=== PATIENT | male | born 1990 | race African-American/Black ===

== ENCOUNTER 2018-03-19 18:57 | Emergency (ER) | payer SELFPAY ==
[~2018-03-19] VITALS: Ht 182.9 cm; Wt 114.4 kg
[~2018-03-19 18:57] MED LIST: BACTRIM DS1 TAB PO; CEPHALEXIN500 MG PO; CIPRO500 MG PO; FLEXERIL OR; KEFLEX500 MG OR; LORTAB 10 PO; LORTAB 7.5 PO; NO MEDS; ZITHROMAX250 MG OR
[2018-03-19 19:55] LABS: HEMATOCRIT 40.4 % (39.0-50.0); IMMATURE GRANULOCYTES 0.5 % (0.0-5.0); MEAN CELL VOLUME 79.8 fL CALC (80.0-100.0); MEAN CORPUSCULAR HGB 27.7 pG CALC (26.0-32.0); MEAN CORPUSCULAR HGB CONC 34.7 g/L CALC (32.0-36.0); NEUT# 12.33 thou/uL (1.82-7.42); RED BLOOD COUNT 5.06 mill/uL (4.70-6.10); RED CELL DISTRI WIDTH 13.8 % (11.5-15.5)
[2018-03-19 20:11] LABS: ANION GAP 14 (6-22 (CALC)); BUN 11 mg/dL (9-20); BUN/CREATININE RATIO 12 (12-20 (CALC)); CARBON DIOXIDE 26 mmol/l (22-30); CHLORIDE 101 mmol/l (95-108); CREATININE 0.9 mg/dL (0.7-1.3); GFR > 60 ML/MIN (>=60 (CALC)); GFR FOR AFR.AMER. > 60 ML/MIN (>=60 (CALC)); POTASSIUM 3.5 mmol/l (3.5-5.1); SODIUM 137 mmol/l (137-146)
[2018-03-19 20:15] LABS: ACT PARTIAL THROMBO TIME 32.4 SECONDS (20.0-32.5); PROTHROMBIN TIME 10.7 SECONDS (9.0-12.5)
[2018-03-19] MEDS ORDERED: DOXYCYCL HYC100 MG PO (20:30)
[2018-03-19 21:01] VITALS: BP 114/49
== END 2018-03-19 21:00 | disposition home or self-care (01) | DRG 603 ==
LOC: ED 18:57
PROVIDERS: Family Medicine
DX: L03.115 Cellulitis of right lower limb (principal); S80.861A Insect bite (nonvenomous), right lower leg, initial encounter; F17.210 Nicotine dependence, cigarettes, uncomplicated; W57.XXXA Bitten or stung by nonvenomous insect and other nonvenomous arthropods, initial encounter

== ENCOUNTER 2019-10-15 | Emergency (ER) | payer SELFPAY ==
[~2019-10-15] MED LIST changes: +DOXYCYCL HYC100 MG PO
[2019-10-15] MEDS ORDERED: MUPIROCIN2 % EX ×2 (19:48)
[2019-10-15] MEDS ORDERED: NO HOME MEDS (20:06)
== END 2019-10-15 20:13 | disposition home or self-care (01) | DRG 605 ==
DX: S81.811A Laceration without foreign body, right lower leg, initial encounter (principal); F17.210 Nicotine dependence, cigarettes, uncomplicated; W13.3XXA Fall through floor, initial encounter; Y92.008 Other place in unspecified non-institutional (private) residence as the place of occurrence of the external cause

== ENCOUNTER 2020-03-15 14:17 | Emergency (ER) | payer SELFPAY ==
[~2020-03-15] VITALS: Ht 182.9 cm; Wt 116.0 kg
[~2020-03-15 14:17] MED LIST changes: +MUPIROCIN2 % EX; +NO HOME MEDS
[2020-03-15] MEDS ORDERED: BACTRIM DS1 TAB PO (14:32)
[2020-03-15 14:37] VITALS: BP 155/85
== END 2020-03-15 14:52 | disposition home or self-care (01) | DRG 603 ==
LOC: ED 14:17
DX: L02.212 Cutaneous abscess of back [any part, except buttock and flank] (principal); F17.210 Nicotine dependence, cigarettes, uncomplicated

== ENCOUNTER 2021-04-16 11:33 | Emergency (ER) | payer SELFPAY ==
[2021-04-16] MEDS ORDERED: CORTISPORIN OTI10 M2 AD (13:01)
[2021-04-16] MEDS ORDERED: AMOXICILLIN875 MG PO (13:01)
[2021-04-16 13:05] VITALS: BP 140/88
== END 2021-04-16 13:05 | disposition home or self-care (01) | DRG 153 ==
LOC: ED 11:33
DX: H66.91 Otitis media, unspecified, right ear (principal); H60.91 Unspecified otitis externa, right ear; F17.210 Nicotine dependence, cigarettes, uncomplicated

== ENCOUNTER 2021-07-27 10:57 | Emergency (ER) | payer SELFPAY ==
[~2021-07-27] VITALS: Ht 182.9 cm; Wt 113.6 kg
[~2021-07-27 10:57] MED LIST changes: +AMOXICILLIN875 MG PO; +CORTISPORIN OTI10 M2 AD
[2021-07-27 12:40] LABS: HEMOGLOBIN 15.9 g/dl (14.0-18.0); MEAN CELL VOLUME 82.3 fL CALC (80.0-100.0); MEAN CORPUSCULAR HGB 27.8 pG CALC (26.0-32.0); MEAN CORPUSCULAR HGB CONC 33.8 g/dL CAL (32.0-36.0); NEUT# 4.49 thou/uL (1.82-7.42); RED BLOOD COUNT 5.72 mill/uL (4.70-6.10)
[2021-07-27 12:45] LABS: HEMATOCRIT 47.1 % (39.0-50.0)
[2021-07-27 12:47] LABS: ALBUMIN 4.7 g/dL (3.2-5.0); ALKALINE PHOSPHATASE 59 u/l (38-126); AMYLASE 56 u/l (30-110); ANION GAP 14 (6-22 (CALC)); BILIRUBIN, TOTAL 1.6 mg/dL (0.0-1.4); BUN 12 mg/dL (9-20); BUN/CREATININE RATIO 11 (12-20 (CALC)); CHLORIDE 96 mmol/l (95-108); CREATININE 1.1 mg/dL (0.7-1.3); ETHYL ALCOHOL 0 mg/dl (0-30); GFR > 60 ML/MIN (>=60 (CALC)); GFR FOR AFR.AMER. > 60 ML/MIN (>=60 (CALC)); LIPASE 30 u/l (23-300); POTASSIUM 4.2 mmol/l (3.5-5.1); SGOT/AST 26 u/l (17-59); SODIUM 138 mmol/l (137-146); TOTAL PROTEIN 8.2 g/dL (6.3-8.2)
[2021-07-27 12:49] LABS: CARBON DIOXIDE 32 mmol/l (22-30)
[2021-07-27 14:14] LABS: URINE BLOOD DIPSTICK NEGATIVE (NEGATIVE); URINE COLOR YELLOW; URINE GLUCOSE - DIPSTICK NEGATIVE (NEGATIVE); URINE KETONE 40 mg/dL (NEGATIVE); URINE LEUK ESTERASE NEGATIVE (NEGATIVE); URINE PH 7.5 (4.5-8.0); URINE PROTEIN - DIPSTICK TRACE mg/dL (NEG-TRACE); URINE SPECIFIC GRAVITY 1.015
[2021-07-27 14:16] LABS: URINE BILIRUBIN - DIPSTICK SMALL (NEGATIVE)
[2021-07-27 14:17] LABS: URINE NITRITE - DIPSTICK NEGATIVE (Negative)
[2021-07-27] MEDS ORDERED: PROTONIX40 MG PO (14:28)
[2021-07-27] MEDS ORDERED: ZOFRAN4 MG/TAB PO (14:28)
[2021-07-27 15:06] VITALS: BP 156/80
== END 2021-07-27 15:20 | disposition home or self-care (01) | DRG 392 ==
LOC: ED 10:57
DX: R10.10 Upper abdominal pain, unspecified (principal); F15.10 Other stimulant abuse, uncomplicated; F17.210 Nicotine dependence, cigarettes, uncomplicated
CPT/HCPCS: S0164